=== PATIENT | male | born 2005 | race Caucasian/White ===

== ENCOUNTER 2025-07-11 11:56 | Outpatient (CLI) | payer BC, SELFPAY ==
[2025-07-11 12:41] LABS: Hematocrit 45.4 % (42.0-52.0); Hemoglobin 15.7 g/dL (14.1-18.0); Immature Granulocytes % 0.5 %; Mean Corpuscular HGB Conc 34.6 g/dL (31.8-35.4); Mean Corpuscular Hemoglobin 30.5 pg (27.0-31.2); Mean Corpuscular Volume 88.2 fl (80-94); Nucleated Red Blood Cells % 0 %; Platelet Count 229 K/mm3 (142-424); Red Blood Count 5.15 M/mm3 (4.60-6.20); Red Cell Distribution Width-SD 37.2 fL; White Blood Count 5.6 K/mm3 (4.8-10.8)
== END 2025-07-11 23:59 | disposition home or self-care (01) ==
LOC: LAB 12:00
PROVIDERS: PCP Pediatrics; Visit Provider Family Medicine
DX: B99.9 Unspecified infectious disease (principal)
CPT/HCPCS: 36415; 85025; 87040